=== PATIENT | female | born 1955 | race Caucasian/White ===

== ENCOUNTER 2021-10-27 09:51 | Outpatient (CLI) | payer MEDICARE, BC, SELFPAY ==
[2021-10-27 13:46] LABS: Hematocrit 42.8 % (33.0-51.0); Hemoglobin* 14.2 gm/dL (12.0-16.0); Lymphocytes Absolute Auto 1.87 K/uL (0.90-2.90); Lymphocytes Percent Auto 30.6 % (20-44); Mean Corpuscular HGB Conc 33 gm/dL (32-36); Mean Corpuscular Hemoglobin 31 pg (26-34); Mean Corpuscular Volume 92 fL (80-100); Monocytes Percent Auto 6.4 % (0.0-11.0); Neutrophils Absolute Auto 3.63 K/uL (1.7-7.0); Neutrophils Percent Auto 59.2 % (42.0-72.0); Platelet Count* 260 K/uL (140-440); RDW Coefficient of Variation % 13.4 % (11.5-15.5); Red Blood Count 4.66 m/uL (4.00-5.20); White Blood Count* 6.12 K/uL (4.50-11.00)
[2021-10-27 13:47] LABS: Basophils Absolute Auto 0.06 K/uL (0.00-0.30); Eosinophils Absolute Auto 0.12 K/uL (0.00-0.50); Immature Granulocytes Abs Auto 0.05 K/uL (0.00-0.30)
[2021-10-27 13:52] LABS: Slide Review Reflex No
[2021-10-27 14:01] LABS: Chloride* 103 mmol/L (96-114); Potassium* 4.9 mmol/L (3.6-5.1); Sodium* 141 mmol/L (135-149)
[2021-10-27 14:03] LABS: Alanine Aminotransferase* 54 U/L (4-35); Carbon Dioxide* 29 mmol/L (20-32); Cholesterol* 203 mg/dL (90-199); Creatinine* 1.1 mg/dL (0.5-1.5); Estimated Glomerular Filt Rate 56 ml/min
[2021-10-27 14:04] LABS: Blood Urea Nitrogen* 18 mg/dL (7-30); Calcium* 9.4 mg/dL (8.4-10.6); Glucose* 127 mg/dL (60-115); HDL Cholesterol* 46 mg/dL (>=50); LDL Cholesterol Calculated 107 mg/dL (<100); Triglycerides* 249 mg/dL (40-149)
== END 2021-10-27 09:52 | disposition home or self-care (01) ==
PROVIDERS: PCP Family Medicine; Visit Provider Family Medicine
DX: Z00.00 Encounter for general adult medical examination without abnormal findings (principal); E78.5 Hyperlipidemia, unspecified; J30.9 Allergic rhinitis, unspecified; I10 Essential (primary) hypertension; E11.9 Type 2 diabetes mellitus without complications
CPT/HCPCS: 80048; 80061; 84460; 85025

== ENCOUNTER 2021-12-20 12:44 | Outpatient (CLI) | payer MEDICARE, BC, SELFPAY ==
--- NOTE | 2021-12-20 13:00 | CRLHL7_ITS ---
For Patients: As a result of the Century Cures Act, medical imaging exams and procedure reports are released immediately into your electronic medical record. You may view this report before your referring provider. If you have questions, please contact your health care provider. INDICATION: Low back pain. Right-sided lumbar radiculopathy. TECHNIQUE: Noncontrast MRI of the lumbar spine is performed in the usual fashion. No comparisons. FINDINGS: Postoperative change compatible with placement of bilateral transpedicular screws vertical stabilizing rods securing the L4-5 levels. Remainder of the lumbar spine demonstrates normal overall stature, alignment and marrow signal. Conus is within normal limits. L1-2: Mild circumferential disk bulge results in no central canal or foraminal narrowing. L2-3: Mild circumferential disk bulge with mild bilateral facet arthropathy results in no central canal or foraminal narrowing. L3-4: Moderate bilateral facet arthropathy with a 4 mm cystic lesion emanating from the right medial aspect of the right facet results in moderate central canal narrowing. Mild broad-based posterior disc bulge results in no left and mild to moderate right foraminal narrowing. L4-5: Central canal is patent. Evidence of laminectomy. Neural foramina are patent. L5-S1: Mild broad-based posterior disc bulge with moderate bilateral facet arthropathy results in mild to moderate right lateral recess narrowing with contact of the traversing right S1 nerve root. Mild right foraminal narrowing with no left foraminal narrowing or significant central canal narrowing. IMPRESSION: 1. Postoperative change compatible with posterior L4-5 fusion. 2. Moderate central canal narrowing with mild to moderate right foraminal narrowing at L3-4. 3. Mild to moderate right lateral recess narrowing at L5-S1 with contact of the traversing right S1 nerve root. There is mild right-sided foraminal narrowing at this level as well. 4. Milder degenerative changes within the remainder of the lumbar spine as outlined above. Dictated by Ad Tim MD @ 12/20/2021 3:21:37 PM (Electronically Signed)
--- NOTE | 2021-12-20 13:45 | CRLHL7_ITS ---
For Patients: As a result of the Century Cures Act, medical imaging exams and procedure reports are released immediately into your electronic medical record. You may view this report before your referring provider. If you have questions, please contact your health care provider. INDICATION: Mid back pain. TECHNIQUE: Noncontrast sagittal T1, T2, STIR and axial GRE sequences are provided. No comparisons. FINDINGS: The overall stature, alignment and intrinsic marrow signal of the thoracic spine is within normal limits. Thoracic cord is normal. No suspicious disc bulges or protrusions. No suspicious central canal or foraminal narrowing. IMPRESSION: Unremarkable MRI of the thoracic spine. Dictated by Ad Tim MD @ 12/20/2021 2:59:19 PM (Electronically Signed)
== END 2021-12-20 12:45 | disposition home or self-care (01) ==
PROVIDERS: PCP Family Medicine; Visit Provider Family Medicine
DX: M48.061 Spinal stenosis, lumbar region without neurogenic claudication (principal)
CPT/HCPCS: 72146; 72148

== ENCOUNTER 2022-02-15 12:03 | Outpatient (CLI) | payer MEDICARE, BC, SELFPAY ==
[2022-02-15 14:01] LABS: Basophils Absolute Auto 0.04 K/uL (0.00-0.30); Basophils Percent Auto 0.7 % (0.0-3.0); Eosinophils Absolute Auto 0.12 K/uL (0.00-0.50); Hematocrit 41.5 % (33.0-51.0); Hemoglobin* 13.9 gm/dL (12.0-16.0); Immature Granulocytes Abs Auto 0.06 K/uL (0.00-0.30); Lymphocytes Absolute Auto 2.47 K/uL (0.90-2.90); Lymphocytes Percent Auto 40.2 % (20-44); Mean Corpuscular HGB Conc 34 gm/dL (32-36); Mean Corpuscular Hemoglobin 31 pg (26-34); Mean Corpuscular Volume 92 fL (80-100); Monocytes Percent Auto 5.7 % (0.0-11.0); Neutrophils Absolute Auto 3.11 K/uL (1.7-7.0); Neutrophils Percent Auto 50.4 % (42.0-72.0); Platelet Count* 283 K/uL (140-440); White Blood Count* 6.15 K/uL (4.50-11.00)
[2022-02-15 14:05] LABS: Slide Review Reflex No
[2022-02-15 14:12] LABS: Chloride* 105 mmol/L (96-114); Sodium* 141 mmol/L (135-149)
[2022-02-15 14:13] LABS: Potassium* 4.6 mmol/L (3.6-5.1)
[2022-02-15 14:15] LABS: Carbon Dioxide* 29 mmol/L (20-32); Creatinine* 0.9 mg/dL (0.5-1.5); Estimated Glomerular Filt Rate 71 ml/min
[2022-02-15 14:16] LABS: Blood Urea Nitrogen* 17 mg/dL (7-30); Calcium* 9.5 mg/dL (8.4-10.6); Glucose* 136 mg/dL (60-115)
== END 2022-02-15 12:04 | disposition home or self-care (01) ==
PROVIDERS: PCP Family Medicine; Visit Provider Family Medicine
DX: Z01.818 Encounter for other preprocedural examination (principal); I10 Essential (primary) hypertension
CPT/HCPCS: 80048; 85025

== ENCOUNTER 2023-01-26 13:01 | Outpatient (CLI) | payer MEDICARE, BC, SELFPAY ==
--- NOTE | 2023-01-26 13:00 | CRLHL7_ITS ---
For Patients: As a result of the Cures Act, medical imaging exams and procedure reports are released immediately into your electronic medical record. You may view this report before your referring provider. If you have questions, please contact your health care provider. Normal. Dictated by Sanjeev Mason MD @ 01/27/2023 8:23:29 AM (Electronically Signed)
--- OUTSIDE RECORDS SUMMARY | 2023-01-26 13:04 | XMS_ITS | Continuity of Care Document ---
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 Role Phone Nasir Lucas MD Unavailable Unavailable Allergies, Adverse Reactions, Alerts Substance Reaction Status Criticality No Known Allergies Active No Inform ation Medications Medication Instructions Dosage Effective Dates (start - stop) Status Comments DICLOFENAC POTASSIUM (unknown strength) Not Available - Active EFFEXOR XR (unknown strength) Not Available - Active OMEPRAZOLE (unknown strength) Not Available - Active ATORVASTATIN CALCIUM (unknown strength) Not Available - Active BUPROPION HCL (unknown strength) Not Available - Active METFORMIN HCL (unknown strength) Not Available - Active METOPROLOL SUCCINATE (unknown strength) Not Available - Active DURLAZA (unknown strength) Not Available - Active Procedures Procedure Date Office/Outpatient Visit,Est, Mod 2022 Office/Outpatient Visit,Est, Mod 2022 Postop Followup Visit Lami, Facetectomy/Foraminotomy, Lumbar ( Stenosis) Lami, Facetectomy/Foraminotomy, Lumbar ( Stenosis) Office/Outpatient Visit,Est, Mod 2021 Office/Outpatient Visit,New, Mod 2021 Postop Followup Visit Postop Followup Visit X-Ray Exam Lower Spine 2-3 Views 2017 Pa Assist Lumbar Spine Fusion, Posterola teral Remove Intraspinal Lesion, Lumbar Remove Lumbar Spine Lamina, 1 Seg Pa Assist Insert Spine Fixation, Posteri or Lumbar Spine Fusion, Posterolateral Remove Intraspinal Lesion, Lumbar Remove Lumbar Spine Lamina, 1 Seg Insert Spine Fixation, Posterior 2017 Allograft, Spine Surg, Morselized BONE MARROW ASPIR BONE GRFG Office/Outpatient Visit,Est, Mod 2017 X-Ray Exam Lwr Spine, Min 4 Views Office/Outpatient Visit,Est, Mod 2017 Office/Outpatient Visit,Est, Mod 2017 Office/Outpatient Visit,Est, Mod 2017 Advance Directives Directive Yes / No Effective Date File Name No Information Encounters Encounter Description Practice Location Reason(s) For Visit Diagnoses Date Provider Providers Copied on Encounter [facility], [address], [place], [place], [id number] , [place] tel: [phone] [facility] No Information 3 Lucas Nasir. [facility], [address] [place] [address], [address], [place], [place], [address] , [place]. tel: [phone] Office/Outpa tient Visit,Est, Mod [facility], [address], [place], [place], [id number] , [place] tel: [phone] [facility] Low back pain, unspecifiedCervi calgiaPain in thoracic spine 3 Lucas Nasir. [facility], [address] [place] [address], [address], [place], [place], [address] , [place]. [phone] Referring Provider: Trip Aguilar, [facility] Physician-D o Not Fax, [place], [address]. tel:[phone] Office/Outpa tient Visit,Est, Mod [facility], [address], [place], [place], [id number] , [place] tel: [phone] [facility] Encounter for follow-up examination after completed treatment for conditions other than malignant neoplasmTrochant jem bursitis, unspecified hipLow back pain, unspecified 3 Lucas Nasir. [facility], [address], [address], [facility] [place], [id number] , [place]. [phone] Referring Provider: Trip Aguilar, [facility] Physician-D o Not Fax, [place], [address]. tel:[phone] [facility], [address], [facility] [place], [id number] , [place] tel:[phone] [facility] [place] Radiculopathy, lumbar region 3 Lucas Nasir. [facility] [place], [address], [address], [facility] [place], [place], [address] , [place]. tel:[phone] Referring Provider: Trip Aguilar, [facility] Physician-D o Not Fax, [place], [address]. tel:[phone] [facility], [address], [facility], [id number] , [place] tel:[phone] [facility] No Information 2 Panvica Brando. [facility], [address], [address], [place], [place], [address] , [place]. tel:[phone] Referring Provider: Trip Aguilar, [facility] Physician-D o Not Fax, [place], [address]. tel:[phone] [facility], [address], [facility], [place], [id number] , [place] tel:[phone] [facility] No Information 2 Lucas Nasir. [facility] [place], [address], [address], [facility] [place], [id number] , [place]. [phone] Referring Provider: Trip Aguilar, [facility] ER Physician-D o Not Fax, [place], [address]. [phone] Office/Outpa tient Visit,Est, Mod [facility], [address], [facility] [place], [id number] , [place] tel:[phone] [facility] Spinal stenosis, lumbar region with neurogenic claudication 2 Lucas Nasir. [facility] [place], [address], [address], [place], [id number] , [place]. tel:[phone] Referring Provider: Trip Aguilar, [facility] Physician-D o Not Fax, [place], [address]. tel:[phone] Office/Outpa tient Visit,[facility], [facility], [address], [facility] [place], [id number] , [place] tel: [phone] [facility] Spinal stenosis, lumbar region with neurogenic claudication 2 Panvica Brando. [facility], [address], [address], [facility] [place], [id number] , [place]. tel:[phone] Referring Provider: Trip Aguilar, [facility] ER Physician-D o Not Fax, [place], [address]. [phone] [facility], [address], [facility] [place], [id number] , [place] tel:[phone] [facility] Encounter for other specified surgical aftercare Feb- 8 Panvica Brando. [facility], [address], [address], [facility] [place], [id number] , [place]. tel:[phone] Referring Provider: Kristyn Mckeon, [facility] [address], [address]. tel:[phone] [facility], [address], [place], [id number] , [place] tel:[phone] [facility] Spinal stenosis, lumbar region with neurogenic claudicationEnco unter for other specified surgical aftercare 8 Lucas Nasir. [facility], [address], [address], [facility] [place], [address] , [place]. tel:[phone] Referring Provider: Sanjeev Sharif, [facility] [address] [place], [address]. tel:[phone] [facility], [address], [place], [place], [address] , [place] tel: [phone] [facility] No Information 0 2 8 Panvica Brando. [facility] [place], [address] [place] [address], [address], [place], [place], [address] , [place]. tel: [phone] Referring Provider: Sanjeev SharifFormerly [facility] [address] [place], [address]. tel:[phone] [facility], [address], [place], [place], [address] , [place] tel: [phone] [facility] No Information 0 8 Lucas Nasir. [facility] [place], [address] [place] [address], [address], [place], [place], [address] , [place]. tel: [phone] Referring Provider: Sanjeev Sharif, [facility] [address] [place], [address]. tel:[phone] Office/Outpa tient Visit,Est, Mod [facility], [address], [place], [place], [id number] , [place] tel: [phone] [facility] Spinal stenosis, lumbar region with neurogenic claudicationSpon dylolisthesis, lumbar region 8 Lucas Nasir. [facility] [place], [address], [address], [place], [place], [address] , [place]. tel: [phone] Referring Provider: Sanjeev Sharif, [facility] [address] [place], [address]. tel:[phone] Office/Outpa tient Visit,Est, Mod [facility], [address], [place], [place], [address] , [place] tel: [phone] [facility] Spondylolysis, lumbar regionOther intervertebral disc displacement, lumbar regionOther intervertebral disc degeneration, lumbar regionSpinal stenosis, lumbar region with neurogenic claudication May-3 1-201 8 Panvica Brando. [facility] [place], [address], [address], [place], [place], [address] , [place]. [phone] Referring Provider: Sanjeev Sharif, [facility] [address] [place], [address]. tel:[phone] Office/Outpa tient Visit,Est, Mod [facility], [address], [facility] [place], [address] , [place] tel: [phone] [facility] [place] Other intervertebral disc degeneration, lumbar regionOther intervertebral disc displacement, lumbar regionSpinal stenosis, lumbar region with neurogenic claudicationSpon dylolysis, lumbar region Apr- 2-201 8 Panvica Brando. [facility], [address], [address], [place], [place], [address] , [place]. [phone] Referring Provider: Sanjeev Sharif, [facility] [address] [place], [address]. tel:[phone] [facility], [address], [facility] [place], [address] , [place] tel: [phone] [facility] Other intervertebral disc displacement, lumbar regionSpinal stenosis, lumbar region with neurogenic claudicationSpon dylolysis, lumbar regionOther intervertebral disc degeneration, lumbar region Mar-2 6-201 8 Panvica Brando. [facility] [place], [address], [address], [place], [place], [address] , [place]. tel:[phone] Office/Outpa tient Visit,Est, Mod [facility], [address], [facility] [place], [address] , [place] tel: [phone] [facility] Low back pain Mar-2 2-201 8 Panvica Brando. [facility] [place], [address], [address], [facility], [place], [address] , [place]. [phone] Referring Provider: Sanjeev Sharif, [facility] [address] [place], [address]. tel:[phone] Family History Family Member Type Diagnosis Age At Onset No Information Payers Payer name Insurance type Covered [place] ID [place] [id number] Medicare [employer] GREEN [id number] Social History Type Description Quantity Date Captured Comments Alcohol Use Details Unknown Caffeine Use Details Unknown Tobacco Use Status No Information Smoking Status No Information Sex Female Chief Complaint And Reason For Visit No Information Reason For Referral Reason For Referral No Information Plan Of Treatment Date Type Action Status Future Order: Radiology Order [id number] -[id number] Lum (APLatFlExL), Ordered on: Ordered History Of Present Illness Encounter Date Complaint History Of Prese nt Illness No Information Functional Status Date Functional Assessmen t No Information Instructions Date Instruction Additional Infor mation No Information Assessments Type Assessment Date No Information Patient Care Teams Name Effective Dates (start - stop) Status Members No Information
--- NOTE | 2023-01-26 13:43 | CRLHL7_ITS ---
For Patients: As a result of the Century Cures Act, medical imaging exams and procedure reports are released immediately into your electronic medical record. You may view this report before your referring provider. If you have questions, please contact your health care provider. BILATERAL SCREENING MAMMOGRAM WITH COMPUTER-AIDED DETECTION AND TOMOSYNTHESIS TECHNIQUE: CC and MLO views were obtained. These mammographic images have been obtained using full-field digital technique. These mammographic images were interpreted with the benefit of computer-aided detection. Breast Tomosynthesis was used in this interpretation. COMPARISON FILM: 10/01/19, 09/29/16. FINDINGS: There are scattered areas of fibroglandular density IMPRESSION: There is no radiographic evidence for malignancy. ASSESSMENT: BI-RADS Category 1: Negative RECOMMENDATION: Routine screening mammogram in 1 year. A lay language report of this examination will be provided to the patient. Pete Coats M.D. Diagnostic/Nuclear Medicine Radiologist [email or web address] MICHELE/Dictated by: Pete Coats MD @ 02/06/2023 11:33:00 AM (Electronically Signed)
== END 2023-01-26 13:02 | disposition home or self-care (01) ==
LOC: RAD 13:02
PROVIDERS: PCP Family Medicine; Visit Provider Family Medicine
DX: Z12.31 Encounter for screening mammogram for malignant neoplasm of breast (principal); Z78.0 Asymptomatic menopausal state
CPT/HCPCS: 77063; 77067; 77080

== ENCOUNTER 2023-02-27 14:20 | Outpatient (CLI) | payer MEDICARE, BC, SELFPAY ==
--- OUTSIDE RECORDS SUMMARY | 2023-02-27 14:26 | XMS_ITS | Continuity of Care Document ---
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 [facility], [address] [place] [address], [address], [place], [place], [address] , [place]. tel: [phone] Office/Outpa tient Visit,Est, Mod [facility], [address], [place], [place], [address] , [place] tel: [phone] [facility] Low back pain, unspecifiedCervi calgiaPain in thoracic spine 3 Lucas Nasir. [facility], [address] [place] [address], [address], [place], [place], [address] , [place]. tel: [phone] Referring Provider: Trip Aguilar, [facility] ER Physician-D o Not Fax, [place], [address]. tel:[phone] Office/Outpa tient Visit,Est, Mod [facility], [address], [place], [place], [address] , [place] tel: [phone] [facility] Encounter for follow-up examination after completed treatment for conditions other than malignant neoplasmTrochant jem bursitis, unspecified hipLow back pain, unspecified 3 Lucas Nasir. [facility], [address], [address], [facility] [place], [address] , [place]. [phone] Referring Provider: Trip Aguilar, [facility] ER Physician-D o Not Fax, [place], [address]. tel:[phone] [facility], [address], [facility] [place], [id number] , [place] tel:[phone] [facility] Radiculopathy, lumbar region 3 Lucas Nasir. [facility] [place], [address], [address], [facility] [place], [place], [address] , [place]. tel:[phone] Referring Provider: Trip Aguilar, [facility] ER Physician-D o Not Fax, [place], [address]. tel:[phone] [facility], [address], [facility], [address] , [place] tel:[phone] [facility] No Information 2 Panvica Brando. [facility], [address], [address], [place], [place], [address] , [place]. tel:[phone] Referring Provider: Trip Aguilar, [facility] ER Physician-D o Not Fax, [place], [address]. tel:[phone] [facility], [address], [facility], [address] , [place] tel:[phone] [facility] No Information 2 Lucas Nasir. [facility] [place], [address], [address], [facility], [address] , [place]. [phone] Referring Provider: Trip Aguilar, [facility] ER Physician-D o Not Fax, [place], [address]. [phone] Office/Outpa tient Visit,Est, Mod [facility], [address], [facility] [place], [address] , [place] tel:[phone] [facility] Spinal stenosis, lumbar region with neurogenic claudication 2 Lucas Nasir. [facility] [place], [address], [address], [place], [address] , [place]. tel:[phone] Referring Provider: Trip Aguilar, [facility] ER Physician-D o Not Fax, [place], [address]. tel:[phone] Office/Outpa tient Visit,[facility], [facility], [address], [facility] [place], [address] , [place] tel: [phone] [facility] Spinal stenosis, lumbar region with neurogenic claudication 2 Panvica Brando. [facility], [address], [address], [facility] [place], [address] , [place]. tel:[phone] Referring Provider: Trip Aguilar, [facility] ER Physician-D o Not Fax, [place], [address]. [phone] [facility], [address], [facility] [place], [address] , [place] tel:[phone] [facility] Encounter for other specified surgical aftercare Feb- 8 Panvica Brando. [facility], [address], [address], [facility] [place], [address] , [place]. tel:[phone] Referring Provider: Kristyn Mckeon, [facility] [address], [address]. tel:[phone] [facility], [address], [place], [address] , [place] tel:[phone] [facility] Spinal stenosis, lumbar region with neurogenic claudicationEnco unter for other specified surgical aftercare 8 Lucas Nasir. [facility], [address], [address], [facility] [place], [address] , [place]. tel:[phone] Referring Provider: Sanjeev Sharif, [facility] [address] [place], [address]. tel:[phone] [facility], [address], [place], [place], [address] , [place] tel: [phone] [facility] No Information 0 2 8 Panvica Brando. [facility] [place], [address] [place] [address], [address], [place], [place], [address] , [place]. tel: [phone] Referring Provider: [facility] [address] [place], [address]. tel:[phone] [facility], [address], [place], [place], [address] , [place] tel: [phone] [facility] No Information 0 8 Lucas Nasir. [facility] [place], [address] [place] [address], [address], [place], [place], [address] , [place]. tel: [phone] Referring Provider: Sanjeev Sharif, [facility] [address] [place], [address]. tel:[phone] Office/Outpa tient Visit,Est, Mod [facility], [address], [place], [place], [address] , [place] tel: [phone] [facility] Spinal stenosis, lumbar region with neurogenic claudicationSpon dylolisthesis, lumbar region 8 Lucas Nasir. [facility] [place], [address], [address], [place], [place], [address] , [place]. tel: [phone] Referring Provider: Sanjeev Sharif, [facility] [address] [place], [address]. tel:[phone] Office/Outpa tient Visit,Est, Mod [facility], [address], [place], [place], [address] , [place] tel: [phone] [facility] Spondylolysis, lumbar regionOther intervertebral disc displacement, lumbar regionOther intervertebral disc degeneration, lumbar regionSpinal stenosis, lumbar region with neurogenic claudication May-3 1-201 8 Panvica Brando. [facility] [place], [address], [address], [place], [place], [address] , [place]. [phone] Referring Provider: Sanjeev Sharif, [facility] [address] [place], [address]. tel:[phone] Office/Outpa tient Visit,Est, Mod [facility], [address], [facility] [place], [address] , [place] tel: [phone] [facility] Other intervertebral disc degeneration, lumbar regionOther intervertebral disc displacement, lumbar regionSpinal stenosis, lumbar region with neurogenic claudicationSpon dylolysis, lumbar region Apr- 2-201 8 Panvica Brando. [facility], [address], [address], [place], [place], [address] , [place]. [phone] Referring Provider: Sanjeev Sharif, [facility] [address] [place], [address]. tel:[phone] [facility], [address], [facility] [place], [address] , [place] tel: [phone] [facility] Other intervertebral disc displacement, lumbar regionSpinal stenosis, lumbar region with neurogenic claudicationSpon dylolysis, lumbar regionOther intervertebral disc degeneration, lumbar region Mar-2 6-201 8 Panvica Brando. [facility] [place], [address], [address], [place], [place], [address] , [place]. tel:[phone] Office/Outpa tient Visit,Est, Mod [facility], [address], [facility], [address] , [place] tel: [phone] [facility] Low back pain Mar-2 2-201 8 Panvica Brando. [facility] [place], [address], [address], [facility], [place], [address] , [place]. [phone] Referring Provider: Sanjeev Sharif, [facility] [address] [place], [address]. tel:[phone] Family History Family Member Type Diagnosis Age At Onset No Information Payers Payer name Insurance type Covered alliance party ID Authoriza tion(s) No Information Social History Type Description Quantity Date Captured Comments Sex Female Smoking Status No Information Chief Complaint And Reason For Visit No Information Reason For Referral Reason For Referral No Information Plan Of Treatment Date Type Action Status Future Order: Radiology Order AP -[id number]-Swzg-[id number] Lum (APLatFlExL), Ordered on: Ordered History Of Present Illness Encounter Date Complaint History Of Prese nt Illness No Information Functional Status Date Functional Assessmen t No Information Instructions Date Instruction Additional Infor mation No Information Assessments Type Assessment Date No Information Patient Care Teams Name Effective Dates (start - stop) Status Members No Information
== END 2023-02-27 14:21 | disposition home or self-care (01) ==
PROVIDERS: PCP Family Medicine; Visit Provider Family Medicine
DX: E11.9 Type 2 diabetes mellitus without complications (principal); I10 Essential (primary) hypertension; E78.5 Hyperlipidemia, unspecified
CPT/HCPCS: 80048; 80061; 84460; 85025

== ENCOUNTER 2024-02-02 09:40 | Outpatient (CLI) | payer MEDICARE, BC, SELFPAY ==
--- OUTSIDE RECORDS SUMMARY | 2024-02-02 09:46 | XMS_ITS | Clinical Summary ---
Author Organization [facility] Address [place], [place] [address] Care Team Providers Care Director Of Quality Improvement Name Role Phone Sanjeev Sharif MD Primary Care Provider + Allergies No known active allergies Medications Medication Sig Dispensed Refills Start Date End Date Status aspirin (ECOTRIN) 81 mg enteric coated tablet Take 81 mg by mouth once daily with a meal. Active fluticasone (50 mcg per actuation) nasal solution (FLONASE)Indicatio ns:Perennial allergic rhinitis, unspecified allergic rhinitis trigger Inhale 2 Sprays into both nostrils once daily. 3 Bottle 4 6 Active CPAPIndications:OS A (obstructive sleep apnea) CPAP machine for home use at pressure: 4-15 CM H20 , Heated humidifier x 1, Humidifier chamber x 1, Nasal mask with cushion x 1, Heated tubing x 1, Headgear x 1, Filters: Disposable x 1pk & Reusable x 1pk, Length of Need: 99 months, Frequency of use: Daily 1 Device 11 9 Active buPROPion (WELLBUTRIN XL) 150 mg Extended-Release tabletIndications: Generalized anxiety disorder Take 1 tablet by mouth every morning. 90 tablet 3 0 Active zolpidem (AMBIEN) 5 mg tabletIndications: Sleep concern Take 1 tablet by mouth at bedtime if needed for Sleep. 30 tablet 1 Active fluocinonide 0.05% topical (LIDEX) 0.05 % ointmentIndication s:Dermatitis Apply topically to affected area(s) 2 times daily. 60 g 1 Active hydrOXYzine HCL (ATARAX) 25 mg tabletIndications: Anxiety TAKE ONE TABLET BY MOUTH EVERY 6 HOURS NEEDED FOR ANXIETY 90 Tablet 1 1 Active atorvastatin (LIPITOR) 40 mg tabletIndications: Hyperlipidemia, unspecified hyperlipidemia type TAKE ONE TABLET BY MOUTH EVERY DAY 90 Tablet 1 Active omeprazole (PRILOSEC) 20 mg Delayed-Release capsuleIndications :Gastroesophageal reflux disease without esophagitis TAKE ONE CAPSULE BY MOUTH TWICE A DAY BEFORE MEALS 180 Capsule 1 Active metoprolol succinate (TOPROL XL) 100 mg Sustained-Release tabletIndications: Essential hypertension TAKE ONE TABLET BY MOUTH EVERY DAY 90 Tablet 1 Active metFORMIN (GLUCOPHAGE XR) 500 mg Extended-Release tabletIndications: Type 2 diabetes mellitus without complication, without long-term current use of insulin (HC) TAKE ONE TABLET BY MOUTH EVERY DAY WITH EVENING MEAL 30 Tablet 1 Active venlafaxine (EFFEXOR XR) 150 mg Extended-Release capsule Take 150 mg by mouth. 2 Active Trulicity 1.5 mg/0.5 mL subcutaneous pen INJECT 1.5MG SUBCUTANEOUSLY EVERY WEEK 4 Active clotrimazole-betam ethasone cream (LOTRISONE) 1-0.05 % creamIndications:I ntertriginous candidiasis Apply topically to affected area(s) 2 times daily. 45 g 3 0 01/21/20 24 Discontinue d(*Patient states no longer taking) clobetasol 0.05% TOPICAL (TEMOVATE) 0.05 % external solution APPLY THIN LAYER TO AFFECTED AREA ON SCALP. FOR UP TO 2 WEEKS. TAKE 2 WEEK BREAK. REPEAT NEEDED FOR FLARES. 2 01/21/20 24 Discontinue d(*Patient states no longer taking) betamethasone,augm ented dipropionate 0.05% (DIPROLENE LOTION 0.05%) lotion APPLY TO SCALP NIGHTLY BEFORE BED FOR UP TO 2 WEEKS/ MONTH. REPEAT NEEDED FOR FLARES 2 01/21/20 24 Discontinue d(*Patient states no longer taking) diclofenac (VOLTAREN) 75 mg delayed-release tablet TAKE ONE TABLET BY MOUTH TWICE A DAY NEEDED FOR PAIN 2 01/21/20 Discontinue d(*Patient states no longer taking) ketoconazole 2% shampoo (NIZORAL) 2 % shampoo USE TO WASH AFFECTED AREA 2-3 TIMES WEEKLY LATHER AND LET SIT FOR A FEW MINUTES BEFORE RINSING 2 01/21/20 Discontinue d(*Patient states no longer taking) naproxen (NAPROSYN) 500 mg tablet Take 500 mg by mouth two times daily. 2 01/21/20 Discontinue d(*Patient states no longer taking) tiZANidine (ZANAFLEX) 4 mg capsule TAKE ONE CAPSULE BY MOUTH TWICE A DAY NEEDED FOR MUSCLE SPASMS 2 01/21/20 Discontinue d(*Patient states no longer taking) triamcinolone (ARISTOCORT) 0.1 % ointment APPLY TO AFFECTED AREA ONE TO TWO TIMES DAILY FOR UP TO 2 WEEKS. TAKE 2 WEEK BREAK. REPEAT NEEDED FOR FLARES. 2 01/21/20 Discontinue d(*Patient states no longer taking) multivitamin with iron-mineral (CENTRUM) liquid Take 5 mL by mouth once daily. 01/21/20 Discontinue d(*Patient states no longer taking) oxyCODONE (ROXICODONE) 5 mg immediate release tabletIndications: Spinal stenosis of lumbar region with neurogenic claudication Take 1-2 Tablets (5-10 mg) by mouth every 4 hours if needed for Pain. 25 Tablet 2 01/21/20 Discontinue d(*Patient states no longer taking) sennosides-docusat e (SENOKOT S) (8.6-50 mg) tabletIndications: Spinal stenosis of lumbar region with neurogenic claudication Take 1 to 4 Tablets by mouth two times daily. 20 Tablet 2 01/21/20 Discontinue d(*Patient states no longer taking) cyclobenzaprine (FLEXERIL) 10 mg tabletIndications: Spinal stenosis of lumbar region with neurogenic claudication Take 1 Tablet (10 mg) by mouth every 8 hours if needed for Muscle Spasm. 20 Tablet 2 01/21/20 Discontinue d(*Patient states no longer taking) WalkerIndications: Spinal stenosis of lumbar region with neurogenic claudication Walker with front wheels for home use. 1 Each 2 01/21/20 Discontinue d(*Patient states no longer taking) WalkerIndications: S/P lumbar spinal fusion Walker with front wheels for home use. 1 Each 2 01/21/20 Discontinue d(*Patient states no longer taking) cephalexin 500 mg capsuleIndications :Acute cystitis with hematuria Take 1 Capsule (500 mg) by mouth three times daily for 7 days. 21 Capsule 4 01/28/20 Active Problems Problem Noted Date Diagnosed Date Obesity (BMI 30-39.9) 02/24/2022 Bilateral asymmetric sensorineural hearing loss 06/28/2018 Tinnitus, bilateral 06/28/2018 Overview (06/28/2018): including ringing, music, and other various sounds S/P lumbar spinal fusion 02/21/2018 Essential hypertension 11/24/2017 Spinal stenosis of lumbar re gion with neurogenic claudication 11/24/2017 Chronic insomnia 02/24/2016 Type 2 diabetes mellitus wit hout complication, without long-term current use of insulin 12/01/2015 Fibromyalgia 11/26/2015 Generalized anxiety disorder 11/26/2015 Allergic rhinitis 11/26/2015 Hyperlipidemia 11/26/2015 Vaginal atrophy 11/26/2015 Impingement syndrome of left shoulder 06/08/2015 Dysthymia 12/23/2008 Overview (09/16/2019): Overview: Depression Anxiety BEST 01/13/2016 AHI 11, 36 REM Overview (12/01/2015): Uses CPAP Family history of malignant hyperthermia Overview (12/04/2017): Patient's son with a history of malignant hyperthermia (biopsy confirmed) Gastroesophageal reflux disease Malignant hyperthermia due to anesthesia Overview (12/14/2017): Pt's son has a hx of MH Resolved Problems Problem Noted Date Diagnosed Date Resolved Date Hypertension 11/26/2015 11/24/2017 Encounters Date Type Department Care Team Description 01/21/2024 11:10 AM GUEST RELATIONS AGENT Office Visit [facility] [address] [place] [address] Phyllis Gaviria NP UTI (Burning, cloudy - started two days ago) 01/21/2024 Travel 11/24/2023 Transcribe Orders [facility] [address] [place] [address] Alfredo Matos MD from Last 3 Months Immunizations Name Administration Dates Next Due Influenza Virus, Unspecified 02/09/2015 Influenza, IIV4 02/03/2020, 8,02/22/2017,2015 Influenza, IIV4 (=>6mos) MDV 01/12/2019 Pneumococcal Poly,23-Valent (Pneumovax) 12/28/2012 Tdap 11/06/2008 Zoster (Shingrix-RZV, recombinant) 04/04/2018, Family History Medical History Relation Name Comments Heart failure Brother of heart attack Good Health Daughter Deneen Diabetes Father Heart Disease Father s/p multiple s tents Stroke Mother Heart attack Other of ID at a ge 34 Skin cancer Paternal Grandmother Malig Hyperthermia Son Cancer-breast No Family History Relation Name Status Comments Brother Daughter Deneen Father Mother Other Paternal Grandmother Son Social History Tobacco Use Types Packs/Day Years Used Date Smoking Tobacco: Never Smokeless Tobacco: Never Tobacco Cessation:Counseling Given: Yes Alcohol Use Standard Drinks/Week Comments Yes 0 (1 standard drink = 0.6 oz pur e alcohol) socially PHQ-2 Answer Date Recorded PHQ-2 TOTAL SCORE 3 09/25/2019 Social Connections Answer Date Recorded Frequency of Communication with Friends and Fami ly Not on file 03/13/2021 Financial Resource Strain Answer Date R ecorded Difficulty of Paying Living Expenses Not on file 03/13/2021 Difficulty of Paying Living Expenses Not on file 03/13/2021 Sex and Gender Information Value Date Recorded Sex Assigned at Not on file Gender Identity Not on file Sexual Orientation Not on file Obstetrics History Last Filed Vital Signs Vital Sign Reading Time Taken Comments Blood Pressure 150/59 01/21/2024 12:11 PM GUEST RELATIONS AGENT Pulse 85 01/21/2024 12:11 PM GUEST RELATIONS AGENT Temperature 36.4 C (97.5 F) 01/21/2024 12:11 PM GUEST RELATIONS AGENT Respiratory Rate 16 01/21/2024 12:11 PM GUEST RELATIONS AGENT Oxygen Saturation 95% 01/21/2024 12:11 PM GUEST RELATIONS AGENT Inhaled Oxygen Concentration - - Weight 76.7 kg (169 lb) 01/21/2024 12:11 PM GUEST RELATIONS AGENT Height 157.5 cm (5' 2) 02/23/2022 6:08 AM GUEST RELATIONS AGENT Body Mass Index 30.91 02/23/2022 6:08 AM GUEST RELATIONS AGENT Plan of Treatment Health Maintenance Due Date Last Done Comments Hepatitis C screening for ag e 18-79 1974 Tetanus booster 11/06/2018 11/06/2008 Depression screening for age 12+ 09/24/2020 09/25/2019, 02/21/2018, 02/21/2018, Additional history exists Mammogram for age 45-75 09/30/2020 10/01/2019, 09/29 BMI (ht and wt on same day) for age 18+ 07/14/2021 07/14/2020, 02/03/2020, 09/25/2019, Additional history exists DEXA/DXA scan for age 65+ 2021 Medicare Wellness for age 65+ 2021 Pneumococcal series for age 65+ (2 of 2 - PCV) 2021 12/28/2012 COVID-19 vaccine series ( season) 2023 05/17/2021, 09/10/2020, 07/29/2020 Influenza for age 65+ 11/12/2023 02/03/2020 , 01/12/2019, 11/24/2017, Additional history exists Lipids for age 45-75 09/19/2024 09/20/2019, 06/18/2018, 09/29/2016, Additional history exists Colonoscopy through age 75 01/26/202601/26, 01/27/2016, 01/27/2016 Tdap Completed 11/06/2008 Zoster (shingles) series for age 50+ Completed 04/04/2018, 11/24/2017 Medical Devices Implanted Type Area Oil [employer] Caser Device Identifier Shelf Expiration Date Model / Serial / Lot Bicep Repair Arthrex - [id number] Implanted:Qty: 1 on 06/09/2015 by Teo Dwyer MD at [facility] Left: Shoulder [employer] 01/11/2020 [id number] / / [id number] one 1-4mm 60cc Medtronic Fine Canclls Freeze Dried Implanted:Qty: 1 on 12/11/2017 by Nasir Lucas MD at [facility] Explanted:at [facility] (Quantity not on file) Spine Medtronic Spine/Ortho 05/17/2022 [id number] / [id number] / Set Screw Lmbr Ant 5.5mm Solera Break Off - [id number] Implanted:Qty: 4 on 12/11/2017 by Nasir Lucas MD at [facility] Spine Medtronic Spine/Ortho [id number] / / Girma Lmbr 45x5.5mm Solera 5.5/6cvd Titnm - [id number] Implanted:Qty: 2 on 12/11/2017 by Nasir Lucas MD at [facility] Spine Medtronic Spine/Ortho [id number]# / / Screw Lmbr Post 6.5x45mm Solera 5.5/6 Va Cocr - [id number] Implanted:Qty: 4 on 12/11/2017 by Nasir Lucas MD at [facility] Spine Medtronic Spine/Ortho [id number] 45# / / Procedures Procedure Name Priority Date/Time Associated Diagnosis Comments URINALYSIS MICROSCOPIC STAT 01/21/2024 12:19 PM GUEST RELATIONS AGENT Urinary symptom or sign URINE CULTURE STAT 01/21/2024 12:19 PM GUEST RELATIONS AGENT Urinary symptom or sign UA W/ SEDIMENT EXAM REFLEXED PER CRITERIA STAT 01/21/2024 12:19 PM GUEST RELATIONS AGENT Urinary symptom or sign XR MAMMO BILAT SCREENING Routine 10/01/2019 1:57 PM CDT Encounter for screening mammogram for malignant neoplasm of breast LIPID PANEL W REFLEX MEASURED LDL Routine 09/20/2019 9:13 AM CDT Type 2 diabetes mellitus without complication, without long-term current use of insulin (HC) Hyperlipidemia, unspecified hyperlipidemia type Essential hypertension COLONOSCOPY SCREENING Routine 01/27/2016 9:52 AM GUEST RELATIONS AGENT Screening for colon cancer from Last 3 Months or Most Recently Relevant to Health Maintenance Results * (ABNORMAL) URINALYSIS MICROSCOPIC (01/21/2024 12:19 PM GUEST RELATIONS AGENT) RBC >100(A) 0-2, None Seen /HPF 01/21/2024 12:42 PM GUEST RELATIONS AGENT [facility] WBC >100(A) 0-2, 3-5, None Seen /HPF 01/21/2024 12:42 PM GUEST RELATIONS AGENT [facility] BACTERIA Many(A) None Seen, Rare, Few Bacteria/ HPF 01/21/2024 12:42 PM GUEST RELATIONS AGENT [facility] EPITHELIAL CELLS Moderate(A ) None Seen, Few Epi/HPF 01/21/2024 12:42 PM GUEST RELATIONS AGENT [facility] Urine URINE SPECIMEN / Unknown Non-Blood / Unknown 01/21/2024 12:19 PM GUEST RELATIONS AGENT 01/21/2024 12:19 PM GUEST RELATIONS AGENT Phyllis Gaviria NP URINE [facility] [address] [place] [address] * (ABNORMAL) URINE CULTURE (01/21/2024 12:19 PM GUEST RELATIONS AGENT) CULTURE RESULT(A) 01/23/2024 6:49 AM GUEST RELATIONS AGENT [facility] CULTURE 50,000-100,000 CFU/mL Klebsiella pneumoniae 01/23/2024 6:49 AM GUEST RELATIONS AGENT [facility] Urine URINE SPECIMEN / Unknown Non-Blood / Unknown 01/21/2024 12:19 PM GUEST RELATIONS AGENT 01/21/2024 12:19 PM GUEST RELATIONS AGENT Narrative Organism Antibiotic Method Susceptibility Klebsiella pneumoniae TRIMETHOPRIM/SULF <=1/19: S Klebsiella pneumoniae AMPICILLIN >=32: R Klebsiella pneumoniae CEFAZOLIN 2: S Klebsiella pneumoniae CEFAZOLIN-UC 2: S Comment:Cefazolin-UC interpretations are for therapy of uncomplicated UTIs due to E.coli, K.pneumoniae, or P.mirablis. Cefazolin breakpoint is used as a surrogate to predict results for the oral agents - cefdinir, cefuroxime, and cephalexin, when used for therapy of uncomplicated UTIs due to E coli, K, pneumoniae, and P. mirabilis. The FDA recommends cefadroxil susceptibility can be deduced from cefazolin. Klebsiella pneumoniae GENTAMICIN <=1: S Klebsiella pneumoniae CEFTRIAXONE <=0.25: S Klebsiella pneumoniae CEFTAZIDIME <=0.5: S Klebsiella pneumoniae LEVOFLOXACIN <=0.12: S Klebsiella pneumoniae CIPROFLOXACIN <=0.06: S Klebsiella pneumoniae PIPERACILLIN/TAZO <=4: S Klebsiella pneumoniae AMPICILLIN/SULBACTAM 4: S Klebsiella pneumoniae CEFEPIME <=0.12: S Klebsiella pneumoniae MEROPENEM <=0.25: S Klebsiella pneumoniae NITROFURANTOIN 64: I Phyllis Gaviria NP [facility] [address] [address], * (ABNORMAL) UA W/ SEDIMENT EXAM REFLEXED PER CRITERIA (01/21/2024 12:19 PM GUEST RELATIONS AGENT) COLOR Yellow Yellow Color 01/21/2024 12:35 PM [facility] CLARITY Clear Clear Clarity 01/21/2024 12:35 PM [facility] SPECIFIC GRAVITY,URINE 1.025 1.010, 1.015, 1.020, 1.025 01/21/2024 12:35 PM [facility] PH,URINE 6.0 6.0, 7.0, 8.0, 5.5, 6.5, 7.5, 8.5 01/21/2024 12:35 PM [facility] UROBILINOGEN, QUALITATIVE Increased(A) Normal EU/dl 01/21/2024 12:35 PM [facility] PROTEIN, URINE 30(A) Negative mg/dL 01/21/2024 12:35 PM [facility] GLUCOSE, URINE Negative Negative mg/dL 01/21/2024 12:35 PM GUEST RELATIONS AGENT [facility] KETONES,URINE 15(A) Negative mg/dL 01/21/2024 12:35 PM GUEST RELATIONS AGENT [facility] BILIRUBIN,URI NE Negative Negative 01/21/2024 12:35 PM [facility] OCCULT BLOOD,URINE Large(A) Negative 01/21/2024 12:35 PM GUEST RELATIONS AGENT [facility] NITRITE Positive(A) Negative 01/21/2024 12:35 PM GUEST RELATIONS AGENT [facility] LEUKOCYTE ESTERASE Large(A) Negative 01/21/2024 12:35 PM GUEST RELATIONS AGENT [facility] Urine URINE SPECIMEN / Unknown Non-Blood / Unknown 01/21/2024 12:19 PM GUEST RELATIONS AGENT 01/21/2024 12:19 PM GUEST RELATIONS AGENT Phyllis Gaviria NP URINE [facility] [address] [place] [address] * XR MAMMO BILAT SCREENING (10/01/2019 1:57 PM CDT) Anatomical Region Laterality Modality BREASTS, Breast Left, Breast Right Bilateral Mammography Impressions 10/01/2019 3:25 PM CDT There is no radiographic evidence for malignancy. Recommend annual mammograms. A lay language report of this examination will be provided to the patient. MAMMOGRAM ASSESSMENT: ACR 2 Benign Narrative 10/01/2019 3:25 PM CDT XR MAMMO BILAT SCREENING [[id number]] CLINICAL HISTORY: This is an asymptomatic 63 y.o. patient. INDICATION FOR EXAM: Mammogram Screening. TECHNIQUE: CC & MLO views were obtained. This digital study was evaluated with the assistance of Computer-Aided Detection. COMPARISON FILMS: Yes 09/30/16 [facility] FINDINGS: Mammographically, the breast tissue has scattered fibroglandular densities. No suspicious masses or microcalcifications. Benign appearing calcifications within both breasts. Kristyn Mckeon DO MAMMO * (ABNORMAL) LIPID PANEL W REFLEX MEASURED LDL (09/20/2019 9:13 AM CDT) CHOLESTEROL,TOTAL 172 100 - 199 mg/dL 09/20/2019 9:52 AM CDT [facility] TRIGLYCERIDES 181(H) <150 mg/dL 09/20/2019 9:52 AM CDT [facility] HDL CHOLESTEROL 41 >40 mg/dL 0 9:52 AM CDT [facility] NON-HDL CHOLESTEROL 131 <145 mg/dl 09/20/2019 9:52 AM CDT [facility] CHOL/HDL RATIO 4.20 <4.50 09/20/2019 9:52 AM CDT [facility] LDL CHOLESTEROL 95 <=130 mg/dL 09/20/2019 9:52 AM CDT [facility] PROVIDER ORDERED STATUS RANDOM 09/20/2019 9:52 AM CDT [facility] Blood BLOOD SPECIMEN / Unknown Venipuncture / Unknown 09/20/2019 9:13 AM CDT 09/20/2019 9:16 AM CDT Kristyn Mckeon DO CHEMISTRY [facility] [address] [place] [address] * COLONOSCOPY SCREENING (01/27/2016 9:52 AM GUEST RELATIONS AGENT) Sanjeev Sharif MD GI PROCEDURE ORD from Last 3 Months or Most Recently Relevant to Health Maintenance Advance Directives * Full Code (Latest Code Status on File) Date Activated Date Inactivated Comments 02/23/2022 4:54 PM 02/25/2022 4:41 PM Question Answer Comments Code Status Discussion: Reviewed Preferences * Full Code Date Activated Date Inactivated Comments 02/26/2018 6:47 AM 02/26/2018 11:50 AM * Full Code Date Activated Date Inactivated Comments 12/11/2017 1:15 PM 12/14/2017 4:20 PM * Full Code Date Activated Date Inactivated Comments 06/09/2015 9:33 AM 06/09/2015 4:19 PM * Full Code Date Activated Date Inactivated Comments 06/09/2015 5:31 AM 06/09/2015 9:33 AM Care Teams Director Of Quality Improvement Relationship Specialty Start Date End Date Sanjeev Sharif MD [address] [place] [address] PCP - General Family Practice 02/11/22
--- OUTSIDE RECORDS SUMMARY | 2024-02-02 09:46 | XMS_ITS | Continuity of Care Document ---
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 Name Role Phone Nasir Lucas MD Unavailable Unavailable Allergies, Adverse Reactions, Alerts Substance Reaction Status Criticality No Known Allergies Active No Inform ation Medications Medication Instructions Dosage Effective Dates (start - stop) Status Comments TRULICITY (unknown strength) Not Available - Active EFFEXOR XR (unknown strength) Not Available - Active DURLAZA (unknown strength) Not Available - Active METOPROLOL SUCCINATE (unknown strength) Not Available - Active METFORMIN HCL (unknown strength) Not Available - Active BUPROPION HCL (unknown strength) Not Available - Active ATORVASTATIN CALCIUM (unknown strength) Not Available - Active OMEPRAZOLE (unknown strength) Not Available - Active Procedures Procedure Date Office/Outpatient Visit,Est, Mod 2023 Office/Outpatient Visit,Est, Mod 2023 X-Ray Exam Of Neck Spine, 4+ Views Office/Outpatient Visit,Est, Mod 2022 Office/Outpatient Visit,Est, Mod [...] on Encounter [facility], [address], [place], [place], [address] , [place] tel: [phone] [facility] No Information 4 Lucas Nasir. [facility], [address] [place] [address], [address], [place], [place], [address] , [place]. tel: [phone] Office/Outpa tient Visit,Est, Mod [facility], [address], [place], [place], [address] , [place] tel: [phone] [facility] [place] Other spondylosis, cervical region 4 Lucas Nasir. [facility], [address], [address], [place], [place], [address] , [place]. tel: [phone] Referring Provider: Trip Aguilar, [facility] ER Physician-D o Not Fax, [place], [address]. [phone] Office/Outpa tient Visit,Est, Mod [facility], [address], [place], [place], [address] , [place] tel: [phone] [facility] [place] Other spondylosis, cervical region 4 Matos [place]. [facility] [address] [address], [address] [place] [address], [address], [place], [address], [place]. tel: [phone] Referring Provider: Trip Aguilar, [facility] ER Physician-D o Not Fax, [place], [address]. tel:[phone] Office/Outpa tient Visit,Est, Mod [facility], [address], [facility], [address] , [place] tel: [phone] [facility] Low back pain, unspecifiedCervi calgiaPain in thoracic spine 3 Lucas Nasir. [facility], [address] [place] [address], [address], [facility], [place], [address] , [place]. tel: [phone] Referring Provider: Trip Aguilar, [facility] ER Physician-D o Not Fax, [place], [address]. tel:[phone] Office/Outpa tient Visit,Est, Mod [facility], [address], [facility] [place], [address] , [place] tel: [phone] [facility] Encounter for follow-up examination after completed treatment for conditions other than malignant neoplasmTrochant jem bursitis, unspecified hipLow back pain, unspecified 3 Lucas Nasir. [facility], [address] [place] [address], [address], [facility], [address] , [place]. tel: [phone] Referring Provider: Trip Aguilar, [facility] ER Physician-D o Not Fax, [place], [address]. tel:[phone] [facility], [address], [facility] [place], [address] , [place] tel: [phone] [facility] [place] Radiculopathy, lumbar region 3 Lucas Nasir. [facility], [address] [place] [address], [address], [facility], [place], [address] , [place]. tel: [phone] Referring Provider: Trip Aguilar, [facility] ER Physician-D o Not Fax, [place], [address]. tel:[phone] [facility], [address], [place], [place], [address] , [place] tel: [phone] [facility] No Information 2 Panvica Brando. [facility] [address], [address], [address], [place], [place], [address] , [place]. tel: [phone] Referring Provider: Trip Aguilar, [facility] ER Physician-D o Not Fax, [place], [address]. tel:[phone] [facility], [address], [place], [place], [address] , [place] tel: [phone] [facility] No Information 2 Lucas Nasir. [facility] [address], [address] [place] [address], [address], [place], [place], [address] , [place]. tel: [phone] Referring Provider: Trip Aguilar, [facility] ER Physician-D o Not Fax, [place], [address]. tel:[phone] Office/Outpa tient Visit,Est, Mod [facility], [address], [place], [place], [address] , [place] tel: [phone] [facility] Spinal stenosis, lumbar region with neurogenic claudication 2 Lucas Nasir. [facility] [address], [address], [address], [place], [place], [address] , [place]. tel: [phone] Referring Provider: Trip Aguilar, [facility] ER Physician-D o Not Fax, [place], [address]. tel:[phone] Office/Outpa tient Visit,New, Mod [facility], [address], [place], [place], [address] , [place] tel: [phone] [facility] Spinal stenosis, lumbar region with neurogenic claudication 3202 2 Panvica Brando. [facility] [address], [address], [address], [place], [place], [address] , [place]. [phone] Referring Provider: Trip Aguilar, [facility] ER Physician-D o Not Fax, [place], [address]. [phone] [facility], [address], [place], [place], [address] , [place] tel:[phone] [facility] Encounter for other specified surgical aftercare Feb-2 0-201 8 Panvica Brando. [facility] [address], [address], [address], [place], [place], [address] , [place]. tel:[phone] Referring Provider: Kristyn Mckeon, [address], [address]. tel:[phone] [facility], [address], [place], [place], [address] , [place] tel:[phone] [facility] [place] Spinal stenosis, lumbar region with neurogenic claudicationEnco unter for other specified surgical aftercare 3-201 8 Lucas Nasir. [facility] [address], [address], [address], [place], [place], [address] , [place]. [phone] Referring Provider: Sanjeev Sharif, [facility] [address] [place], [address]. tel:[phone] [facility], [address], [place], [place], [address] , [place] tel:[phone] [facility] No Information 2-201 8 Panvica Brando. [facility] [address], [address], [address], [place], [place], [address] , [place]. [phone] Referring Provider: Sanjeev Sharif, [facility] [address] [place], [address]. tel:[phone] [facility], [address], [place], [place], [address] , [place] tel: [phone] [facility] No Information 8 Lucas Nasir. [facility] [address], [address], [address], [place], [place], [address] , [place]. tel: [phone] Referring Provider: Sanjeev Sharif, [facility] [address] [place], [address]. tel:[phone] Office/Outpa tient Visit,Est, Mod [facility], [address], [place], [place], [address] , [place] tel: [phone] [facility] Spinal stenosis, lumbar region with neurogenic claudicationSpon dylolisthesis, lumbar region 8 Lucas Nasir. [facility], [address], [address], [place], [place], [address] , [place]. tel: [phone] Referring Provider: Sanjeev Sharif, [facility] [address] [place], [address]. tel:[phone] Office/Outpa tient Visit,Est, Mod [facility], [address], [place], [place], [address] , [place] tel: [phone] [facility] Spondylolysis, lumbar regionOther intervertebral disc displacement, lumbar regionOther intervertebral disc degeneration, lumbar regionSpinal stenosis, lumbar region with neurogenic claudication 8 Panvica Brando. [facility] [address], [address], [address], [place], [place], [address] , [place]. tel: [phone] Referring Provider: Sanjeev Sharif, [facility] [address] [place], [address]. [phone] Office/Outpa tient Visit,Est, Mod [facility], [address], [place], [place], [address] , [place] tel: [phone] [facility] Other intervertebral disc degeneration, lumbar regionOther intervertebral disc displacement, lumbar regionSpinal stenosis, lumbar region with neurogenic claudicationSpon dylolysis, lumbar region Apr-1 2-201 8 Panvica Brando. [facility], [address], [address], [place], [place], [address] , [place]. tel:[phone] Referring Provider: [facility] [address] [place], [address]. tel:[phone] [facility], [address], [place], [place], [address] , [place] tel:[phone] [facility] Other intervertebral disc displacement, lumbar regionSpinal stenosis, lumbar region with neurogenic claudicationSpon dylolysis, lumbar regionOther intervertebral disc degeneration, lumbar region May- 6 8 Panvica Brando. [facility], [address], [address], [place], [place], [address] , [place]. tel:[phone] Office/Outpa tient Visit,Est, Mod [facility], [address], [place], [place], [address] , [place] tel:[phone] [facility] Low back pain May- 8 Panvica Brando. [facility], [address], [address], [place], [place], [address] , [place]. tel:[phone] Referring Provider: [facility] [address] [place], [address]. tel:[phone] Family History Family Member Type Diagnosis Age At Onset No Information Payers Payer name Insurance type Covered republican ID Authorcamerona tiangelique(s) [facility] [id number] Medicare [facility] [id number] 1 Social History Type Description Quantity Date Captured Comments Sex Female Smoking Status No Information Chief Complaint And Reason For Visit No Information Reason For Referral Reason For Referral No Information Plan Of Treatment Date Type Action Status Future Order: Radiology Order AP -Xwk-Aroz-Dpk Lum (APLatFlExL), Ordered on: Ordered History Of Present Illness Encounter Date Complaint History Of Prese nt Illness No Information Functional Status Date Functional Assessmen t No Information Instructions Date Instruction Additional Infor mation No Information Assessments Type Assessment Date No Information Patient Care Teams Name Effective Dates (start - stop) Status Members No Information
== END 2024-02-02 09:41 | disposition home or self-care (01) ==
PROVIDERS: PCP Family Medicine; Visit Provider Family Medicine
DX: R30.0 Dysuria (principal); R53.83 Other fatigue; E78.2 Mixed hyperlipidemia; R06.02 Shortness of breath
CPT/HCPCS: 80048; 80061; 83880; 85025; 87086; 87186

== ENCOUNTER 2024-02-06 12:36 | Outpatient (CLI) | payer MEDICARE, BC, SELFPAY ==
--- OUTSIDE RECORDS SUMMARY | 2024-02-06 12:39 | XMS_ITS | Continuity of Care Document ---
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 [facility], [address] [place] [address], [address], [place], [place], [address] , [place]. tel: [phone] Office/Outpa tient Visit,Est, Mod [facility], [address], [place], [place], [address] , [place] tel: [phone] [facility] Other spondylosis, cervical region 4 Lucas Nasir. [facility], [address], [address], [place], [place], [address] , [place]. tel: [phone] Referring Provider: Trip Aguilar, [facility] ER Physician-D o Not Fax, [place], [address]. [phone] Office/Outpa tient Visit,Est, Mod [facility], [address], [place], [place], [address] , [place] tel: [phone] [facility] Other spondylosis, cervical region 4 Matos [place]. [facility] [place], [address] [place] [address], [address], [place], [address], [place]. tel: [phone] Referring Provider: Trip Aguilar, [facility] ER Physician-D o Not Fax, [place], [address]. tel:[phone] Office/Outpa tient Visit,Est, Mod [facility], [address], [facility], [address] , [place] tel: [phone] [facility] Low back pain, unspecifiedCervi calgiaPain in thoracic spine 3 Lucas Nasir. [facility], [address] [place] [address], [address], [facility], [place], [address] , [place]. tel: [phone] Referring Provider: Trip Aguilar, [facility] ER Physician-D o Not Fax, [place], [address]. tel:[phone] Office/Outpa tient Visit,Est, Mod [facility], [address], [facility], [place], [address] , [place] tel: [phone] [facility] Encounter for follow-up examination after completed treatment for conditions other than malignant neoplasmTrochant jem bursitis, unspecified hipLow back pain, unspecified 3 Lucas Nasir. [facility], [address] [place] [address], [address], [facility], [address] , [place]. tel: [phone] Referring Provider: Trip Aguilar, [facility] ER Physician-D o Not Fax, [place], [address]. tel:[phone] [facility], [address], [facility], [address] , [place] tel: [phone] [facility] Radiculopathy, lumbar region 3 Lucas Nasir. [facility], [address] [place] [address], [address], [facility], [place], [address] , [place]. tel: [phone] Referring Provider: Trip Aguilar, [facility] ER Physician-D o Not Fax, [place], [address]. tel:[phone] [facility], [address], [place], [place], [address] , [place] tel: [phone] [facility] No Information 2 Panvica Brando. [facility] [place], [address], [address], [place], [place], [address] , [place]. tel: [phone] Referring Provider: Trip Aguilar, [facility] ER Physician-D o Not Fax, [place], [address]. tel:[phone] [facility], [address], [place], [place], [address] , [place] tel: [phone] [facility] No Information 2 Lucas Nasir. [facility] [place], [address] [place] [address], [address], [place], [place], [address] , [place]. tel: [phone] Referring Provider: Trip Aguilar, [facility] ER Physician-D o Not Fax, [place], [address]. tel:[phone] Office/Outpa tient Visit,Est, Mod [facility], [address], [place], [place], [address] , [place] tel: [phone] [facility] Spinal stenosis, lumbar region with neurogenic claudication 2 Lucas Nasir. [facility] [place], [address], [address], [place], [place], [address] , [place]. tel: [phone] Referring Provider: Trip Aguilar, [facility] ER Physician-D o Not Fax, [place], [address]. tel:[phone] Office/Outpa tient Visit,New, Mod [facility], [address], [place], [place], [address] , [place] tel: [phone] [facility] Spinal stenosis, lumbar region with neurogenic claudication 3202 2 Panvica Brando. [facility] [place], [address], [address], [place], [place], [address] , [place]. [phone] Referring Provider: Trip Aguilar, [facility] ER Physician-D o Not Fax, [place], [address]. [phone] [facility], [address], [place], [place], [address] , [place] tel:[phone] [facility] Encounter for other specified surgical aftercare Feb-2 0-201 8 Panvica Brando. [facility], [address], [address], [place], [place], [address] , [place]. tel:[phone] Referring Provider: Kristyn Mckeon, [address], [address]. tel:[phone] [facility], [address], [place], [place], [address] , [place] tel:[phone] [facility] Spinal stenosis, lumbar region with neurogenic claudicationEnco unter for other specified surgical aftercare 3-201 8 Lucas Nasir. [facility] [place], [address], [address], [place], [place], [address] , [place]. [phone] Referring Provider: Sanjeev Sharif, [facility] [address] [place], [address]. tel:[phone] [facility], [address], [place], [place], [address] , [place] tel:[phone] [facility] No Information 2-201 8 Panvica Brando. [facility] [place], [address], [address], [place], [place], [address] , [place]. [phone] Referring Provider: Sanjeev Sharif, [facility] [address] [place], [address]. tel:[phone] [facility], [address], [place], [place], [address] , [place] tel: [phone] [facility] No Information 8 Lucas Nasir. [facility], [address], [address], [place], [place], [address] , [place]. tel: [phone] Referring Provider: Sanjeev Sharif, [facility] [address] [place], [address]. tel:[phone] Office/Outpa tient Visit,Est, Mod [facility], [address], [place], [place], [address] , [place] tel: [phone] [facility] Spinal stenosis, lumbar region with neurogenic claudicationSpon dylolisthesis, lumbar region 8 Lucas Nasir. [facility], [address], [address], [place], [place], [address] , [place]. tel: [phone] Referring Provider: Sanjeev Sharif, [facility] [address] [place], [address]. tel:[phone] Office/Outpa tient Visit,Est, Mod [facility], [address], [place], [place], [address] , [place] tel: [phone] [facility] Spondylolysis, lumbar regionOther intervertebral disc displacement, lumbar regionOther intervertebral disc degeneration, lumbar regionSpinal stenosis, lumbar region with neurogenic claudication 8 Panvica Brando. [facility] [place], [address], [address], [place], [place], [address] , [place]. tel: [phone] Referring Provider: Sanjeev Sharif, [facility] [address] [place], [address]. [phone] Office/Outpa tient Visit,Est, Mod [facility], [address], [place], [place], [address] , [place] tel: [phone] [facility] Other intervertebral disc degeneration, lumbar regionOther intervertebral disc displacement, lumbar regionSpinal stenosis, lumbar region with neurogenic claudicationSpon dylolysis, lumbar region Apr-1 2-201 8 Panvica Brando. [facility], [address], [address], [place], [place], [address] , [place]. tel:[phone] Referring Provider: [facility] [address] [place], [address]. tel:[phone] [facility], [address], [place], [place], [address] , [place] tel:[phone] [facility] Other intervertebral disc displacement, lumbar regionSpinal stenosis, lumbar region with neurogenic claudicationSpon dylolysis, lumbar regionOther intervertebral disc degeneration, lumbar region May- 6 8 Panvica Brando. [facility], [address], [address], [place], [place], [address] , [place]. tel:[phone] Office/Outpa tient Visit,Est, Mod [facility], [address], [place], [place], [address] , [place] tel:[phone] [facility] Low back pain May- 8 Panvica Brando. [facility], [address], [address], [place], [place], [address] , [place]. tel:[phone] Referring Provider: [facility] [address] [place], [address]. tel:[phone] Family History Family Member Type Diagnosis Age At Onset No Information Payers Payer name Insurance type Covered democrat ID Authorcamerona tiangelique(s) [facility] [id number] Medicare [facility] [id number] 1 Social History Type Description Quantity Date Captured Comments Sex Female Smoking Status No Information Chief Complaint And Reason For Visit No Information Reason For Referral Reason For Referral No Information Plan Of Treatment Date Type Action Status Future Order: Radiology Order AP -Vlw-Tika-Jko Lum (APLatFlExL), Ordered on: Ordered History Of Present Illness Encounter Date Complaint History Of Prese nt Illness No Information Functional Status Date Functional Assessmen t No Information Instructions Date Instruction Additional Infor mation No Information Assessments Type Assessment Date No Information Patient Care Teams Name Effective Dates (start - stop) Status Members No Information
--- OUTSIDE RECORDS SUMMARY | 2024-02-06 12:39 | XMS_ITS | Clinical Summary ---
Author Organization [facility] Address [place], [place] [address] Care Team Providers Care Lighting Fixtures Decorator Name Role Phone Sanjeev Sharif MD Primary [...] Department Care Team Description 01/21/2024 11:10 AM CORONER FORENSIC TECHNICIAN Office Visit [facility] [address] [place] [address] Phyllis Gaviria NP UTI (Burning, cloudy - started two days ago) 01/21/2024 Travel 11/24/2023 Transcribe Orders [facility] [address] [place] [address] Alfredo Matos MD from Last 3 Months [...] tents Stroke Mother Heart attack Other of [place] at a ge 35 Skin cancer Paternal [...] Comments Blood Pressure 150/59 01/21/2024 12:11 PM CORONER FORENSIC TECHNICIAN Pulse 85 01/21/2024 12:11 PM CORONER FORENSIC TECHNICIAN Temperature 36.4 C (97.5 F) 01/21/2024 12:11 PM CORONER FORENSIC TECHNICIAN Respiratory Rate 16 01/21/2024 12:11 PM CORONER FORENSIC TECHNICIAN Oxygen Saturation 95% 01/21/2024 12:11 PM CORONER FORENSIC TECHNICIAN Inhaled Oxygen Concentration - - Weight 76.7 kg (169 lb) 01/21/2024 12:11 PM CORONER FORENSIC TECHNICIAN Height 157.5 cm (5' 2) 02/23/2022 6:08 AM CORONER FORENSIC TECHNICIAN Body Mass Index 30.91 02/23/2022 6:08 AM CORONER FORENSIC TECHNICIAN Plan of Treatment Upcoming Encounters Date Type Department Care Team (Late st Contact Info) Description 02/06/2024 1:00 PM CORONER FORENSIC TECHNICIAN Ancillary Procedure [facility] [address] [place] [address] Health Maintenance Due Date Last Done Comments [...] 04/04/2018, 11/24/2017 Medical Devices Implanted Type Area Crystalizer Operator Device Identifier Shelf Expiration Date Model / Serial / Lot Bicep Repair [employer]rex - [id number] Implanted:Qty: 1 on 06/09/2015 by Teo Dwyer MD at [facility] Left: Shoulder [employer] 01/11/2020 [id number]# / / [id number] one 1-4mm 60cc Medtronic Fine Canclls Freeze Dried Implanted:Qty: 1 on 12/11/2017 by Nasir Lucas MD at [facility] Explanted:at [facility] (Quantity not on file) Spine Medtronic Spine/Ortho 05/17/2022 [id number] / [id number] / Set Screw Lmbr Ant 5.5mm Solera Break Off - [id number] Implanted:Qty: 4 on 12/11/2017 by Nasir Lucas MD at [facility] Spine [employer]onic Spine/Ortho [id number] / / Girma Lmbr 45x5.5mm Solera 5.5/6cvd Titnm - [id number] Implanted:Qty: 2 on 12/11/2017 by Nasir Lucas MD at [facility] Spine [employer]tronic Spine/Ortho [id number]# / / Screw Lmbr Post 6.5x45mm Solera 5.5/6 Va Cocr - [id number] Implanted:Qty: 4 on 12/11/2017 by Nasir Lucas MD at [facility] Spine [employer]tronic Spine/Ortho [id number]# / / Procedures Procedure Name Priority Date/Time Associated Diagnosis Comments URINALYSIS MICROSCOPIC STAT 01/21/2024 12:19 PM CORONER FORENSIC TECHNICIAN Urinary symptom or sign URINE CULTURE STAT 01/21/2024 12:19 PM CORONER FORENSIC TECHNICIAN Urinary symptom or sign UA W/ SEDIMENT EXAM REFLEXED PER CRITERIA STAT 01/21/2024 12:19 PM CORONER FORENSIC TECHNICIAN Urinary symptom or sign XR MAMMO BILAT SCREENING Routine 10/01/2019 1:57 PM CDT Encounter for screening mammogram for malignant neoplasm of breast LIPID PANEL W REFLEX MEASURED LDL Routine 09/20/2019 9:13 AM CDT Type 2 diabetes mellitus without complication, without long-term current use of insulin (HC) Hyperlipidemia, unspecified hyperlipidemia type Essential hypertension COLONOSCOPY SCREENING Routine 01/27/2016 9:52 AM CORONER FORENSIC TECHNICIAN Screening for colon cancer from Last 3 Months or Most Recently Relevant to Health Maintenance Results * (ABNORMAL) URINALYSIS MICROSCOPIC (01/21/2024 12:19 PM CORONER FORENSIC TECHNICIAN) RBC >100(A) 0-2, None Seen /HPF 01/21/2024 12:42 PM CORONER FORENSIC TECHNICIAN [facility] WBC >100(A) 0-2, 3-5, None Seen /HPF 01/21/2024 12:42 PM CORONER FORENSIC TECHNICIAN [facility] BACTERIA Many(A) None Seen, Rare, Few Bacteria/ HPF 01/21/2024 12:42 PM CORONER FORENSIC TECHNICIAN [facility] EPITHELIAL CELLS Moderate(A ) None Seen, Few Epi/HPF 01/21/2024 12:42 PM CORONER FORENSIC TECHNICIAN [facility] Urine URINE SPECIMEN / Unknown Non-Blood / Unknown 01/21/2024 12:19 PM CORONER FORENSIC TECHNICIAN 01/21/2024 12:19 PM CORONER FORENSIC TECHNICIAN Phyllis Gaviria NP URINE [facility] [address] [place] [id number] * (ABNORMAL) URINE CULTURE (01/21/2024 12:19 PM CORONER FORENSIC TECHNICIAN) CULTURE RESULT(A) 01/23/2024 6:49 AM CORONER FORENSIC TECHNICIAN [facility] CULTURE 50,000-100,000 CFU/mL Klebsiella pneumoniae 01/23/2024 6:49 AM CORONER FORENSIC TECHNICIAN [facility] Urine URINE SPECIMEN / Unknown Non-Blood / Unknown 01/21/2024 12:19 PM CORONER FORENSIC TECHNICIAN 01/21/2024 12:19 PM CORONER FORENSIC TECHNICIAN Narrative Organism Antibiotic Method Susceptibility Klebsiella pneumoniae TRIMETHOPRIM/SULF <=03/31: S Klebsiella pneumoniae AMPICILLIN >=32: R Klebsiella [...] NITROFURANTOIN 64: I Phyllis Gaviria NP MICROBIOLOGY [facility] [address] [place] [address], [place] * (ABNORMAL) UA W/ SEDIMENT EXAM REFLEXED PER CRITERIA (01/21/2024 12:19 PM CORONER FORENSIC TECHNICIAN) COLOR Yellow Yellow Color 01/21/2024 12:35 PM [facility] CLARITY Clear Clear Clarity 01/21/2024 12:35 PM [facility] SPECIFIC GRAVITY,URINE 1.025 1.010, 1.015, 1.020, 1.025 01/21/2024 12:35 PM [facility] PH,URINE 6.0 6.0, 7.0, 8.0, 5.5, 6.5, 7.5, 8.5 01/21/2024 12:35 PM [facility] UROBILINOGEN, QUALITATIVE Increased(A) Normal EU/dl 01/21/2024 12:35 PM [facility] PROTEIN, URINE 30(A) Negative mg/dL 01/21/2024 12:35 PM CORONER FORENSIC TECHNICIAN [facility] GLUCOSE, URINE Negative Negative mg/dL 01/21/2024 12:35 PM [facility] KETONES,URINE 15(A) Negative mg/dL 01/21/2024 12:35 PM CORONER FORENSIC TECHNICIAN [facility] BILIRUBIN,URI NE Negative Negative 01/21/2024 12:35 PM [facility] OCCULT BLOOD,URINE Large(A) Negative 01/21/2024 12:35 PM [facility] NITRITE Positive(A) Negative 01/21/2024 12:35 PM [facility] LEUKOCYTE ESTERASE Large(A) Negative 01/21/2024 12:35 PM [facility] Urine URINE SPECIMEN / Unknown Non-Blood / Unknown 01/21/2024 12:19 PM CORONER FORENSIC TECHNICIAN 01/21/2024 12:19 PM CORONER FORENSIC TECHNICIAN Phyllis Gaviria NP URINE [facility] [address] [place] [address] * XR MAMMO BILAT SCREENING (10/01/2019 1:57 PM CDT) Anatomical Region Laterality Modality BREASTS, Breast Left, Breast Right Bilateral Mammography Impressions 10/01/2019 3:25 PM CDT There is no radiographic evidence for malignancy. Recommend annual mammograms. A lay language report of this examination will be provided to the patient. MAMMOGRAM ASSESSMENT: ACR 2 Benign Narrative 10/01/2019 3:25 PM CDT XR MAMMO BILAT SCREENING [[id number]] CLINICAL HISTORY: This is an asymptomatic 63 [...] - 199 mg/dL 09/20/2019 9:52 AM CDT [facility] TRIGLYCERIDES 181(H) <150 mg/dL 09/20/2019 9:52 AM CDT [facility] HDL CHOLESTEROL 41 >40 mg/dL 0 9:52 AM CDT [facility] NON-HDL CHOLESTEROL 131 <145 mg/dl 09/20/2019 9:52 AM CDT [facility] CHOL/HDL RATIO 4.20 <4.50 09/20/2019 9:52 AM CDT [facility] LDL CHOLESTEROL 95 <=130 mg/dL 09/20/2019 9:52 AM CDT [facility] PROVIDER ORDERED STATUS RANDOM 09/20/2019 9:52 AM CDT [facility] Blood BLOOD SPECIMEN / Unknown Venipuncture / Unknown 09/20/2019 9:13 AM CDT 09/20/2019 9:16 AM CDT Krist[place] [address] * COLONOSCOPY SCREENING (01/27/2016 9:52 AM CORONER FORENSIC TECHNICIAN) Sanjeev Sharif MD GI PROCEDURE ORD from [...] 5:31 AM 06/09/2015 9:33 AM Care Teams Lighting Fixtures Decorator Relationship Specialty Start Date End Date Sanjeev Sharif MD [address] [place] [address] PCP - General Family Practice 02/11/22
[2024-02-06] MEDS: DOBUTamine 250 MG in 5 % DEXTROSE 250 ML 230 ML 44.4 MG IVPB (14:16)
[2024-02-06] MEDS: ATROPINE 1 MG/10 ML SYRINGE IVP (14:27)
[2024-02-06 14:45] VITALS: BP 141/79; PULSE 98; RESP 16
--- NOTE | 2024-02-06 15:03 | W.PM.STED ---
Stress Test Note Date Date of test: 02/06/24 Providers Primary care provider: Sanjeev Sharif Stress test physician: Trip Estrella Stress Test Note Stress test ordered: Dobutamine Echo Indication for test: Shortness of breath Stress test medicine: Dobutamine Results discussion: Patient is a very nice 68-year-old female who presented here initially for a stress echo, after talking with her the risks benefits she said she clearly could not walk on the treadmill, so was changed to dobutamine echo. By myself. Cardiac stress test medical history form is reviewed. Informed consent risks benefits and side effects of this test she accepts these would like to proceed. Pretest EKG is reviewed, she appears in normal sinus rhythm, with a ventricular rate of 86 and a blood pressure 126/82. Standard dobutamine infusion is done over a time course of 12 minutes 43 seconds, maximum dose of dobutamine was 40 mcg. She did receive 0.5 mg of atropine with a maximum heart rate of 135, which is 103% of the maximum. Symptomatic Danitza she had no chest pain shortness of breath or any anginal equivalents. Review of her tracing did not show any ST wave changes or anything suggestive ischemia she did not have any dysrhythmias. Impression: Negative electrographic portion of dobutamine echo Follow up suggested: Await echo interpretation by Cardiology, clinical correlation with this will be needed. Patient left this testing facility in good condition, there were no complication
== END 2024-02-06 12:37 | disposition home or self-care (01) ==
PROVIDERS: PCP Family Medicine; Visit Provider Family Medicine
DX: R06.02 Shortness of breath (principal)
CPT/HCPCS: 93016; 93325; 93351; J0461; J1250; J7050

== ENCOUNTER 2024-05-24 09:36 | Outpatient (CLI) | payer MEDICARE, BC, SELFPAY | END 2024-05-24 09:37 | disposition home or self-care (01) | PROVIDERS: PCP Family Medicine; Visit Provider Family Medicine | DX: I10 Essential (primary) hypertension (principal); E11.9 Type 2 diabetes mellitus without complications; E78.2 Mixed hyperlipidemia | CPT/HCPCS: 80048; 85025 ==

== ENCOUNTER 2025-01-01 10:01 | Outpatient (CLI) | payer MEDICARE, BC, SELFPAY ==
--- NOTE | 2025-01-01 10:15 | CRLHL7_ITS ---
For Patients: As a result of the Century Cures Act, medical imaging exams and procedure reports are released immediately into your electronic medical record. You may view this report before your referring provider. If you have questions, please contact your health care provider. Indication: Low back pain Technique: Noncontrast sagittal and axial T1, T2, and sagittal STIR sequences are provided. Comparison: MRI 12/20/2021 Findings: Exaggeration of lumbar lordosis. Slight retrolisthesis L3-4 and grade 1 anterolisthesis at L5-S1. Postoperative changes of L3-4 through L5-S1 laminectomies and bilateral posterior instrumented fusion at L4-5. Surgical changes at L3-4 are new since the prior study. No compression fractures. No aggressive osseous lesions. The conus medullaris is normal in signal located at L1. Anterior osteophytic spurring at L1-2 through L3-4. T12-L1: No significant spinal canal stenosis or neural foramen narrowing. L1-2: Mild disc bulge and facet arthrosis. No significant spinal canal stenosis or neural foraminal narrowing. L2-3: Mild disc bulge and bilateral facet arthrosis with ligamentum flavum buckling. Mild spinal canal narrowing. Mild narrowing of the neural foramen inferior recesses without nerve impingement. L3-4: Circumferential disc bulge. Decompressive laminectomy changes. Small left dorsal epidural fluid collection. Mild spinal canal narrowing. Mild right neural foraminal narrowing. No left neural foraminal narrowing. L4-5: Mild disc bulge eccentric to the right contacts the descending right L5 nerve roots. Decompressive laminectomy changes. No neural foramen narrowing. L5-S1: Decompressive laminectomy changes. Increased disc bulge and endplate osteophytic ridging with similar advanced right facet joint arthrosis. Mild to moderate subarticular recess stenosis bilaterally with contact between disc bulge and descending S1 nerve roots. Moderate bilateral neural foraminal narrowing. Diffuse atrophy of the paraspinal muscles inferior to the L5 level. Impression : 1. Postoperative changes of L3-4 through L5-S1 laminectomies and bilateral posterior instrumented fusion at L4-5. Surgical changes at L3-4 are new since the prior study. 2. At L2-3, mild spinal canal narrowing and mild neural foraminal narrowing bilaterally. 3. At L3-4, postop changes with small left dorsal epidural postoperative fluid collection. Mild spinal canal narrowing and mild right neural foraminal narrowing. 4. At L4-5, mild right subarticular recess narrowing. 5. At L5-S1, mild to moderate subarticular recess narrowing bilaterally and encroachment of the descending right S1 nerve roots. Moderate bilateral neural foraminal narrowing. Dictated by Sanjeev Cole MD @ 01/02/2025 1:19:50 PM (Electronically Signed)
== END 2025-01-01 10:02 | disposition home or self-care (01) ==
LOC: MRI 10:02
PROVIDERS: PCP Family Medicine; Visit Provider Family Medicine
DX: M51.26 Other intervertebral disc displacement, lumbar region (principal); M51.27 Other intervertebral disc displacement, lumbosacral region; G89.29 Other chronic pain
CPT/HCPCS: 72148

== ENCOUNTER 2025-01-07 09:58 | Outpatient (CLI) | payer MEDICARE, BC, SELFPAY ==
[2025-01-09 02:08] LABS: HPV Source Cervical
[2025-01-13 08:22] LABS: Pap Test Digital Imaging Done
== END 2025-01-07 09:59 | disposition home or self-care (01) ==
PROVIDERS: PCP Family Medicine; Visit Provider Obstetrics & Gynecology
DX: Z12.4 Encounter for screening for malignant neoplasm of cervix (principal)
CPT/HCPCS: 87624; 87625; 88141; 88142; 88175

== ENCOUNTER 2025-03-04 15:34 | Outpatient (CLI) | payer MEDICARE, BC, SELFPAY ==
[2025-03-04 21:55] LABS: Hematocrit* 39.9 % (33.0-51.0); Hemoglobin* 13.3 gm/dL (12.0-16.0); Immature Granulocytes Abs Auto 0.02 K/uL (0.00-0.30); Immature Granulocytes Pct Auto 0.3 %; Lymphocytes Absolute Auto 2.49 K/uL (0.90-2.90); Mean Corpuscular HGB Conc 33 gm/dL (32-36); Mean Corpuscular Hemoglobin 31 pg (26-34); Mean Corpuscular Volume 93 fL (80-100); RDW Coefficient of Variation % 11.7 % (11.5-15.5); Red Blood Count* 4.31 m/uL (4.00-5.20); White Blood Count* 6.98 K/uL (4.50-11.00)
[2025-03-04 22:03] LABS: Chloride* 103 mmol/L (96-114); Potassium* 4.7 mmol/L (3.6-5.1); Slide Review Reflex No; Sodium* 137 mmol/L (135-149)
[2025-03-04 22:06] LABS: Alanine Aminotransferase* 21 U/L (4-35); Anion Gap 7 mEq/L (7-15); Blood Urea Nitrogen* 20 mg/dL (7-30); Carbon Dioxide* 27 mmol/L (20-32); Creatinine* 1.6 mg/dL (0.5-1.5); Estimated Glomerular Filt Rate 35 ml/min
[2025-03-04 22:07] LABS: Calcium* 9.9 mg/dL (8.4-10.6); Cholesterol* 137 mg/dL (90-199); Glucose* 75 mg/dL (60-115); HDL Cholesterol* 35 mg/dL (>=50); Triglycerides* 146 mg/dL (40-149)
== END 2025-03-04 15:35 | disposition home or self-care (01) ==
PROVIDERS: PCP Family Medicine; Visit Provider Family Medicine
DX: Z01.818 Encounter for other preprocedural examination (principal); E78.2 Mixed hyperlipidemia; E11.9 Type 2 diabetes mellitus without complications
CPT/HCPCS: 80048; 80061; 83036; 84460; 85025